=== PATIENT | male | born 1955 | race Caucasian/White ===

== ENCOUNTER 2017-12-30 14:45 | Emergency (ER) | payer BC, OTHER ==
[2017-12-30] MEDS ORDERED: NA CHLORIDE 0.9% 500 ML ONE ×2 (15:36→18:12)
[2017-12-30] MEDS ORDERED: ONDANSETRON 4 MG/2 ML VIAL ONE (15:36)
[2017-12-30] MEDS ORDERED: FENTANYL CITR 100 MCG/2 ML ONE (15:36)
[2017-12-30 15:38] LABS: Basophils % 0.2 % (0-1.3); Eosinophils % 0.1 % (0-4.4); Hematocrit 39.5 % (39.6-49.0); Lymphocytes % 6.7 % (15.3-44.8); MCH 29.4 pg (27.0-35.0); Monocytes % 6.4 % (3.3-12.3); RBC Red Blood Cell Count 4.49 M/uL (4.33-5.43)
[2017-12-30 15:58] LABS: Bilirubin Direct 0.2 mg/dL (0-0.2); Bilirubin Total 0.8 mg/dL (0.2-1.0); Protein, Total 7.1 g/dL (6.4-8.2)
[2017-12-30] MEDS ORDERED: NA CHLORIDE 0.9% 1,000 ML ONE (16:56)
--- NOTE | 2017-12-30 17:35 | RAD REPORT ---
EXAM DESCRIPTION: CTAbdomen Pelvis W Contrast - 12/30/2017 5:16 pm CLINICAL HISTORY: Abdominal pain. ABD PAIN COMPARISON: No comparisons TECHNIQUE: Biphasic CT imaging of the abdomen and pelvis was performed with 100 ml non-ionic IV cont rast. All CT scans are performed using dose optimization technique as appropriate and may include automated exposure control or mA/KV adjustment according to patient size. FINDINGS: The lower lung fernandez are emphysematous.Trace right pleural fluid. The liver demonstrates no focal mass or biliary dilatation. Cholelithiasis. The spleen, pancreas adre nal glands are normal. The left kidney has a normal appearance. A very large subcapsular hematoma is noted involving the right kidney measuring 12 x 6 cm. Marked def ormity of the right renal parenchyma is seen with evidence of a laceration present posteriorly. Activ e extravasation of contrast is seen within the hematoma compatible with active bleeding. A Page kidne y is likely. Moderate perinephric hematoma is seen with hematoma extending into the retroperitoneal s pace the right and extending across the midline. Fracture is seen involving the right posterior eleventh rib. Moderate fat containing inguinal hernia containing small bowel loop without obstruction. Prominent si gmoid diverticulosis without diverticulitis. IMPRESSION: Very large subcapsular hematoma involving the right kidney with evidence of active bleed ing. The right kidney is significantly deformed by the hematoma with evidence of posterior inferior l aceration. A Page kidney is possible. Moderate associated retroperitoneal hematoma is also present. Findings were discussed with HALLIE Peter in the emergency room 5:30 p.m. 12/30/2017 by telephone.
--- NOTE | 2017-12-30 17:57 | ER ---
Nurse's Notes [facility] Name: Chino Samuels Age: 62 yrs Sex: Male : 1955 Arrival Date: 12/30/2017 Time: 14:52 Bed 30 Private MD: Diagnosis: Laceration of right kidney, unspecified degree-Traumatic from fall with active bleeding Presentation: 12/30 15:07 Presenting complaint: Patient states: Reports slipping and falling, hitting right flank aj on pipes. Seen by health work and rc'd chest x-ray. Referred to ER for CT. Patient reports nausea as well. Transition of care: patient was not received from another setting of care. Onset of symptoms was December 30, 2017. Risk Assessment: Do you want to hurt yourself or someone else? Patient reports no desire to harm self or others. Initial Sepsis Screen: Does the patient meet any 2 criteria? No. Patient's initial sepsis screen is negative. Does the patient have a suspected source of infection? No. Patient's initial sepsis screen is negative. Care prior to arrival: None. 15:07 Method Of Arrival: Ambulatory 15:07 Acuity: RIAZ 3 aj 18:36 Acuity: RIAZ 2 ss Triage Assessment: 15:09 General: Appears in no apparent distress. comfortable, Behavior is calm, cooperative, aj appropriate for age. Pain: Complains of pain in right eighth rib, right ninth rib, right tenth rib, anterior aspect of right lateral abdomen and posterior aspect of right lateral abdomen. Neuro: Level of Consciousness is awake, alert, obeys commands, Oriented to person, place, time, situation, Appropriate for age. Respiratory: Airway is patent Respiratory effort is even, unlabored, Respiratory pattern is regular, symmetrical. GI: Abdomen is flat, non-distended. Derm: Skin is intact, is healthy with good turgor, Skin is pink, warm \T\ dry. normal. Historical: - Allergies: 15:09 No Known Allergies; aj - Home Meds: 15:09 Wellbutrin Oral [Active]; Hydrochlorothiazide Oral [Active]; Adderall XR Oral [Active]; aj - PMHx: 15:09 ADD/ADHD; Hypertension; Anxiety; aj - PSHx: 15:09 Appendectomy; Hernia repair; aj - Immunization history:: Adult Immunizations up to date. - Social history:: Smoking status: Patient/guardian denies using tobacco. - Ebola Screening: : Patient negative for fever greater than or equal to 101.5 degrees Fahrenheit, and additional compatible Ebola Virus Disease symptoms Patient denies exposure to infectious person Patient denies travel to an Ebola-affected area in the 21 days before illness onset No symptoms or risks identified at this time. Screenin:16 Abuse screen: Denies threats or abuse. Denies injuries from another. Nutritional mg2 screening: No deficits noted. Tuberculosis screening: No symptoms or risk factors identified. Fall Risk Fall in past 12 months (25 points). Assessment: 15:14 General: Appears uncomfortable, Behavior is calm, cooperative. Pain: Complains of pain mg2 in right flank Pain does not radiate. Pain currently is 10 out of 10 on a pain scale. Quality of pain is described as aching, Pain began suddenly, few hours ago at work. Neuro: Level of Consciousness is awake, alert, obeys commands, Oriented to person, place, time, situation. Cardiovascular: Capillary refill < 3 seconds Patient's skin is warm and dry. Respiratory: Airway is patent Respiratory effort is even, unlabored, Respiratory pattern is regular, symmetrical. GI: Abd is soft X 4 quads Reports Pain is 10 out of 10 on a pain scale. : No signs and/or symptoms were reported regarding the genitourinary system. EENT: No signs and/or symptoms were reported regarding the EENT system. Derm: Skin is intact, Skin is pink, warm \T\ dry. normal. Musculoskeletal: Circulation, motion, and sensation intact. Injury Description: no bruising or discoloration noted. 15:40 GI: Pt is actively vomiting Bowel sounds present X 4 quads. mg2 16:45 Reassessment: patient vomited 2x in ed. mg2 18:07 Reassessment: patient is for transfer and blood transfusion prior to transfer. informed mg2 consent signed by the daughter. 18:25 Reassessment: Patient appears in no apparent distress at this time. Patient and/or mg2 family updated on plan of care and expected duration. Pain level reassessed. Patient is alert, oriented x 3, equal unlabored respirations, skin warm/dry/pink. blood transfusion started. 18:51 Reassessment: lifeflight here, report given to GARY Fergusoncharge account clerk nurse at [facility]. Vital Signs: 15:09 BP 106 / 70; Pulse 52; Resp 20; Temp 98.2; Pulse Ox 98% on R/A; Weight 86.18 kg; Height aj 5 ft. 8 in. (172.72 cm); 15:45 BP 125 / 67; Pulse 50; Resp 18; Pulse Ox 100% 0 lpm ; Pain 9/10; mg2 16:43 BP 106 / 77; Pulse 49; Resp 18; Pulse Ox 96% ; Pain 8/10; mg2 17:32 BP 126 / 68; Pulse 57; Resp 18; Pulse Ox 100% ; Pain 5/10; mg2 18:20 BP 120 / 68; Pulse 60; Resp 18; Temp 98; Pulse Ox 100% on R/A; Pain 2/10; mg2 18:20 BP 126 / 67; Pulse 65; Resp 18; Temp 97.9; Pulse Ox 100% ; Pain 4/10; mg2 15:09 Body Mass Index 28.89 (86.18 kg, 172.72 cm) ED Course: 14:52 Patient arrived in ED. mr 15:08 Triage completed. aj 15:09 Daryl Yee PA is PHCP. cp 15:09 Arm band placed on left wrist. Patient placed in an exam room. aj 15:10 Lee Mallory MD is Attending Physician. cp 15:10 Jerzy Pantoja, GARY is Primary Nurse. mg2 15:40 Inserted saline lock: 20 gauge in left antecubital area, using aseptic technique. Blood mg2 collected. 15:41 Patient has correct armband on for positive identification. Placed in gown. Call light mg2 in reach. Side rails up X2. Door closed. Warm blanket given. Head of bed lowered. 17:07 Inserted saline lock: 20 gauge in right hand, using aseptic technique. Blood collected. mg2 17:16 CT Abd/Pelvis - W/Contrast: slip and fell into pipe RLQ In Process Unspecified. EDMS 17:18 CT completed. Patient tolerated procedure well. Patient moved back from CT. nj 18:10 EKG done, by nursing techn. reviewed by Daryl STERLING. sm3 18:21 X-ray completed. Portable x-ray completed in exam room. Patient tolerated procedure ml well. 18:22 XRAY Chest (1 view) In Process Unspecified. EDMS 18:58 No provider procedures requiring assistance completed. Patient transferred, IV remains mg2 in place. Administered Medications: 15:39 Drug: NS 0.9% 500 ml Route: IV; Rate: bolus; Site: left antecubital; mg2 16:40 Follow up: Response: No adverse reaction; IV Status: Completed infusion mg2 15:39 Drug: fentaNYL (PF) 25 mcg Route: IVP; Site: left antecubital; mg2 16:40 Follow up: Response: No adverse reaction; Pain is unchanged, physician notified mg2 15:39 Drug: Zofran 4 mg Route: IVP; Site: left antecubital; mg2 16:39 Follow up: Response: No adverse reaction; Nausea unchanged; Vomiting unchanged mg2 16:39 Drug: fentaNYL (PF) 25 mcg Route: IVP; Site: left antecubital; mg2 16:53 CANCELLED (Physician Discretion): NS 0.9% 500 ml IV at bolus once cp 17:07 Drug: Phenergan 25 mg Route: IVP; Site: right hand; mg2 17:07 Drug: NS 0.9% 1000 ml Route: IV; Rate: 1 bolus; Site: right hand; mg2 18:36 Drug: Benadryl 12.5 mg Route: IVP; Site: right hand; mg2 18:50 Follow up: Response: No adverse reaction mg2 18:42 Drug: ceFAZolin 1 grams Volume: 50 ml; Route: IVPB; Infused Over: 30 mins; Site: left mg2 antecubital; 18:45 Follow up: Response: No adverse reaction; IV Status: Completed infusion mg2 Outcome: 17:56 ER care complete, transfer ordered by MD. cp 18:59 Transferred by helicopter to [facility], Transfer form completed. mg2 18:59 Condition: stable 18:59 Instructed on the need for transfer, Demonstrated understanding of instructions. 19:10 Patient left the ED. mg2 Signatures: Dispatcher [employer] EDMS Mercedes Wilhelm RN RN aj Rivera, Maria mr Lopez, Sophia Wolfe RN RN ss Page, Corey, PA PA cp Jordan, Nathan nj Gardose, Michele, RN RN mg2 Anuradha Solano 3
[2017-12-30] MEDS ORDERED: DIPHENHYDRAMINE 50 MG/ML VIAL ONE (17:58)
--- NOTE | 2017-12-30 17:58 | EDPHYS ---
Physician Documentation [facility] Name: Chino Samuels Age: 62 yrs Sex: Male : 1955 Arrival Date: 12/30/2017 Time: 14:52 Bed 30 Private MD: ED Physician Lee Mallory HPI: 12/30 15:22 This 62 yrs old Male presents to ER via Ambulatory with complaints of cp Abdominal Pain. 15:22 The patient presents with abdominal pain right lower quadrant, blunt injury to the cp right lower quadrant. Onset: The symptoms/episode began/occurred this morning. The symptoms do not radiate. 15:22 Associated signs and symptoms: Pertinent negatives: chest pain, constipation, diarrhea, cp dysuria, fever, vomiting. The symptoms are described as constant. Modifying factors: the symptoms are aggravated by movement, pressure. 15:22 Patient reports he slipped and fell landing on right side of abdomen striking pipe in cp ground. Did not strike head or lose consciousness. Historical: - Allergies: 15:09 No Known Allergies; aj - Home Meds: 15:09 Wellbutrin Oral [Active]; Hydrochlorothiazide Oral [Active]; Adderall XR Oral [Active]; aj - PMHx: 15:09 ADD/ADHD; Hypertension; Anxiety; aj - PSHx: 15:09 Appendectomy; Hernia repair; aj - Immunization history:: Adult Immunizations up to date. - Social history:: Smoking status: Patient/guardian denies using tobacco. - Ebola Screening: : Patient negative for fever greater than or equal to 101.5 degrees Fahrenheit, and additional compatible Ebola Virus Disease symptoms Patient denies exposure to infectious person Patient denies travel to an Ebola-affected area in the 21 days before illness onset No symptoms or risks identified at this time. ROS: 15:30 Constitutional: Negative for body aches, chills, fever, poor PO intake. cp 15:30 Eyes: Negative for injury, pain, redness, and discharge. cp Exam: 15:35 Constitutional: The patient appears in no acute distress, alert, awake, cp non-diaphoretic, well developed, well nourished, uncomfortable. 15:35 Head/Face: Normocephalic, atraumatic. Eyes: Pupils equal round and reactive to light, cp extra-ocular motions intact. Lids and lashes normal. Conjunctiva and sclera are non-icteric and not injected. Cornea within normal limits. Periorbital areas with no swelling, redness, or edema. ENT: Nares patent. No nasal discharge, no septal abnormalities noted. Tympanic membranes are normal and external auditory canals are clear. Oropharynx with no redness, swelling, or masses, exudates, or evidence of obstruction, uvula midline. Mucous membranes moist. Neck: Trachea midline, no thyromegaly or masses palpated, and no cervical lymphadenopathy. Supple, full range of motion without nuchal rigidity, or vertebral point tenderness. No Meningismus. Chest/axilla: Normal chest wall appearance and motion. Nontender with no deformity. No lesions are appreciated. 15:35 Cardiovascular: Rate: bradycardic, Rhythm: regular, Edema: is not appreciated, JVD: is not appreciated. 15:35 Respiratory: the patient does not display signs of respiratory distress, Respirations: normal, no use of accessory muscles, no retractions, no splinting, no tachypnea, labored breathing, is not present, Breath sounds: are clear throughout, no decreased breath sounds, no stridor, no wheezing. 15:35 Abdomen/GI: Inspection: bruising, right lower lateral abdomen, Bowel sounds: active, all quadrants, Palpation: abdomen is soft and non-tender, in all quadrants, severe abdominal tenderness, in the right lower quadrant, rebound tenderness, is not appreciated, voluntary guarding, is elicited in the right lower quadrant. 15:35 Back: pain, is absent, ROM is normal. 15:35 Skin: cellulitis, is not appreciated, no rash present. 15:35 Neuro: Orientation: to person, place \T\ time. Mentation: is normal, Cerebellar function: is grossly normal, Motor: moves all fours, strength is normal, Sensation: no obvious gross deficits. 18:10 ECG was reviewed by the Attending Physician. cp Vital Signs: 15:09 BP 106 / 70; Pulse 52; Resp 20; Temp 98.2; Pulse Ox 98% on R/A; Weight 86.18 kg; Height aj 5 ft. 8 in. (172.72 cm); 15:45 BP 125 / 67; Pulse 50; Resp 18; Pulse Ox 100% 0 lpm ; Pain 9/10; mg2 16:43 BP 106 / 77; Pulse 49; Resp 18; Pulse Ox 96% ; Pain 8/10; mg2 17:32 BP 126 / 68; Pulse 57; Resp 18; Pulse Ox 100% ; Pain 5/10; mg2 18:20 BP 120 / 68; Pulse 60; Resp 18; Temp 98; Pulse Ox 100% on R/A; Pain 2/10; mg2 18:20 BP 126 / 67; Pulse 65; Resp 18; Temp 97.9; Pulse Ox 100% ; Pain 4/10; mg2 15:09 Body Mass Index 28.89 (86.18 kg, 172.72 cm) aj MDM: 15:13 Patient medically screened. 18:05 ED course: VSS. Consult with trauma services \[id number], DR Blank, will accept patient to ED for reevaluation. 18:29 Data reviewed: vital signs, nurses notes, lab test result(s), EKG, radiologic studies, CT scan, plain films. 12/30 15:19 Order name: Amylase, Serum; Complete Time: 16:21 12/30 15:19 Order name: Basic Metabolic Panel; Complete Time: 16:21 12/30 16:21 Interpretation: Normal except: GLUC 149; BUN 20; GFR 56. 12/30 15:19 Order name: CBC with Diff; Complete Time: 16:21 12/30 17:41 Interpretation: Normal except: WBC 15.0; HGB 13.2; HCT 39.5; CASA% 86.6; LYM% 6.7; NEUT cp A 13.0. 12/30 15:19 Order name: Creatinine for Radiology; Complete Time: 16:21 12/30 15:19 Order name: Hepatic Function; Complete Time: 16:21 12/30 15:19 Order name: Lipase; Complete Time: 16:21 12/30 15:19 Order name: CT Abd/Pelvis - W/Contrast: slip and fell into pipe RLQ; Complete Time: 17:40 12/30 16:54 Order name: Type And Screen 12/30 17:51 Order name: Packed RBC Leukored -1 [facility] [place] 12/30 17:54 Order name: ABO/RH no charge; Complete Time: 18:09 [facility] [place] 12/30 18:03 Order name: XRAY Chest (1 view); Complete Time: 18:42 07/10 15:19 Order name: IV Saline Lock; Complete Time: 15:40 cp 12/30 15:19 Order name: Labs collected and sent; Complete Time: 15:40 cp 10 15:19 Order name: Urine Dipstick-Ancillary (obtain specimen); Complete Time: 15:40 cp 10 16:53 Order name: IV; Complete Time: 17:50 cp 12/30 17:27 Order name: EKG; Complete Time: 17:28 cp 12/30 17:27 Order name: EKG - Nurse/Tech; Complete Time: 18:08 cp EC:10 Rate is 62 beats/min. Rhythm is regular. KS interval is normal. QRS interval is normal. cp QT interval is normal. No ST changes noted. Interpreted by me. Reviewed by me. Administered Medications: 15:39 Drug: NS 0.9% 500 ml Route: IV; Rate: bolus; Site: left antecubital; mg2 16:40 Follow up: Response: No adverse reaction; IV Status: Completed infusion mg2 15:39 Drug: fentaNYL (PF) 25 mcg Route: IVP; Site: left antecubital; mg2 16:40 Follow up: Response: No adverse reaction; Pain is unchanged, physician notified mg2 15:39 Drug: Zofran 4 mg Route: IVP; Site: left antecubital; mg2 16:39 Follow up: Response: No adverse reaction; Nausea unchanged; Vomiting unchanged mg2 16:39 Drug: fentaNYL (PF) 25 mcg Route: IVP; Site: left antecubital; mg2 16:53 CANCELLED (Physician Discretion): NS 0.9% 500 ml IV at bolus once cp 17:07 Drug: Phenergan 25 mg Route: IVP; Site: right hand; mg2 17:07 Drug: NS 0.9% 1000 ml Route: IV; Rate: 1 bolus; Site: right hand; mg2 18:36 Drug: Benadryl 12.5 mg Route: IVP; Site: right hand; mg2 18:50 Follow up: Response: No adverse reaction mg2 18:42 Drug: ceFAZolin 1 grams Volume: 50 ml; Route: IVPB; Infused Over: 30 mins; Site: left mg2 antecubital; 18:45 Follow up: Response: No adverse reaction; IV Status: Completed infusion mg2 Disposition: 18:05 Co-signature as Attending Physician, Lee Mallory MD PA/REGISTERED MEDICAL ASSISTANT's history reviewed, patient rn interviewed, and examined. HPI: 62 year old male s/p fall, + right flank pain My personal exam of patient reveals: + RUQ tenderness and ecchymosis with guarding to right flank, + inferior right rib cage tenderness, no crepitus I agree with assessment and care plan and confirm the diagnosis (es) above. Have initiated transfer to [facility] for renal laceration, have not had call back, attempting again.. Disposition: 12/30/17 17:56 Transfer ordered to [facility]. Diagnosis is Laceration of right kidney, unspecified degree - Traumatic from fall with active bleeding. - Reason for transfer: Higher level of care. - Accepting physician is Abhay. - Condition is Stable. - Problem is new. - Symptoms have improved. Signatures: Dispatcher [employer] EDMercedes Cintron RN RN Lee Lobo MD MD rn Page, Corey, PA PA cp Gardose, Michele RN RN mg2 Corrections: (The following items were deleted from the chart) 16:53 16:52 NS 0.9% 500 ml IV at bolus once ordered. cp cp 17:41 16:54 Normal except: WBC 15.0; HGB 13.2; HCT 39.5. cp cp 18:14 17:56 12/30/2017 17:56 Transfer ordered to [facility]. cp Diagnosis is Laceration of right kidney, unspecified degree - Traumatic from fall with active bleeding. Reason for transfer: Higher level of care. Accepting physician is doctor. Condition is Stable. Problem is new. Symptoms have improved. cp 19:10 18:14 12/30/2017 17:56 Transfer ordered to [facility]. mg2 Diagnosis is Laceration of right kidney, unspecified degree - Traumatic from fall with active bleeding. Reason for transfer: Higher level of care. Accepting physician is Abhay. Condition is Stable. Problem is new. Symptoms have improved. cp
--- NOTE | 2017-12-30 18:41 | RAD REPORT ---
EXAM DESCRIPTION: Haleigh Single View12/30/2017 6:23 pm CLINICAL HISTORY: Abdominal pain COMPARISON: November 2016 FINDINGS: The lungs appear clear of acute infiltrate. The heart is normal size IMPRESSION: No acute abnormalities displayed
[2017-12-30] MEDS ORDERED: CEFAZOLIN/SWI 1gm 1 GM/10 ML SYR ONE (18:43)
--- NOTE | 2017-12-30 21:31 | EKG ---
Test Date: 2017-12-30 Test Time: 18:03:07 Saw Maker: SANDRA MEASUREMENT RESULTS: Intervals: Rate: 62 OK: 160 QRSD: 94 QT: 436 QTc: 442 [place]: P: 53 OK: 160 QRS: 8 T: 29 INTERPRETIVE STATEMENTS: Normal sinus rhythm Normal ECG No previous ECG available for comparison Electronically Signed On 12-30-17 21:30:53 CDT by Benoit Dobson
== END 2017-12-30 19:10 | disposition short-term general hospital (02) ==
LOC: ER 14:45
DX: S37.031A Laceration of right kidney, unspecified degree, initial encounter (principal); W01.198A Fall on same level from slipping, tripping and stumbling with subsequent striking against other object, initial encounter; Y93.89 Activity, other specified; Y92.9 Unspecified place or not applicable; I10 Essential (primary) hypertension; F41.9 Anxiety disorder, unspecified; F90.9 Attention-deficit hyperactivity disorder, unspecified type
CPT/HCPCS: 36415; 71045; 74177; 80048; 80076; 82150; 83690; 85025; 86850; 86900; 86901; 93005; 99285; J0690; J2405; J3010; J7030; P9016; Q9967

== ENCOUNTER 2018-01-10 16:10 | Emergency (ER) | payer BC ==
[2018-01-10 17:09] LABS: Urine Blood NEGATIVE (NEG); Urine Glucose NEGATIVE (NEG); Urine Protein NEGATIVE (NEG)
[2018-01-10 17:13] LABS: Absolute Lymphocytes (CBC) 1.5 K/uL (0.7-4.9); Absolute Neutrophil 6.9 K/uL (1.8-8.0); Basophils % 1.1 % (0-1.3); Eosinophils % 2.6 % (0-4.4); Hematocrit 27.8 % (39.6-49.0); Lymphocytes % 15.7 % (15.3-44.8); MCH 31.2 pg (27.0-35.0); MCV 89.7 fL (80-100); MPV 6.7 fL (7.6-11.3); RBC Red Blood Cell Count 3.09 M/uL (4.33-5.43)
[2018-01-10 17:31] LABS: ALT/SGPT 56 U/L (12-78); AST/SGOT 47 U/L (15-37); Albumin 3.2 g/dL (3.4-5.0); Alkaline Phosphatase 169 U/L (45-117); BUN Blood Urea Nitrogen 14 mg/dL (7-18); Bicarbonate 27 mmol/L (21-32); Bilirubin Direct 0.3 mg/dL (0-0.2); Bilirubin Total 1.1 mg/dL (0.2-1.0); Glucose Level 89 mg/dL (74-106); Potassium 4.1 mmol/L (3.5-5.1); Protein, Total 7.6 g/dL (6.4-8.2); Sodium Level 135 mmol/L (136-145)
[2018-01-10 17:36] LABS: Urine RBC <5 /HPF (NONE SEEN)
[2018-01-10 17:37] LABS: Urine Bacteria NONE SEEN /HPF (NONE SEEN); Urine Culture Reflex Order NOT NEEDED
--- NOTE | 2018-01-10 19:42 | RAD REPORT ---
EXAM DESCRIPTION: CT - Abdomen Pelvis W Contrast - 01/10/2018 5:54 pm CLINICAL HISTORY: Abdominal pain/right renal laceration COMPARISON: December 30, 2017 TECHNIQUE: Computed axial tomography of the abdomen pelvis was obtained. 100 cc Isovue-300 was admin istered intravenously. Oral contrast was not requested which limits evaluation of bowel. All CT scans are performed using dose optimization technique as appropriate and may include automated exposure control or mA/KV adjustment according to patient size. FINDINGS: A mildly displaced fracture involves the right eleventh posterior rib. An 11 x 11 centimeter right renal subscapular hematoma is overall without significant change from the prior examination. The additional retroperitoneal blood is diminished in size. The laceration involv ing the lower pole of the right kidney is without obvious change. Hydronephrosis is not present. The left kidney appears unremarkable. The spleen, liver, pancreas and adrenals demonstrate no significant abnormality. Cholelithiasis is present without evidence cholecystitis. A right inguinal hernia contains nondilated small bowel and a small amount of fluid. Small right pleural effusion with right lower lobe atelectasis is seen. A small left inguinal hernia contains fat IMPRESSION: 11 centimeter subacute right renal subcapsular hematoma is without significant change in size from the prior examination. The additional retroperitoneal blood has diminished.
--- NOTE | 2018-01-10 19:42 | RAD REPORT ---
EXAM DESCRIPTION: Haleigh Gomez (2 Views)01/10/2018 5:24 pm CLINICAL HISTORY: Cough COMPARISON: December 30 2017 FINDINGS: A small right pleural effusion is present. The lungs appear clear of acute infiltrate. The heart is normal size IMPRESSION: Small right pleural effusion
--- NOTE | 2018-01-10 20:13 | ER ---
Nurse's Notes [facility] Name: Chino Samuels Age: 62 yrs Sex: Male : 1955 Arrival Date: 01/10/2018 Time: 16:14 Bed 27 Private MD: Diagnosis: Atelectasis Presentation: 01/10 16:15 Presenting complaint: Patient states: "I came here and they sent me to [place] [id number] for some broken ribs and a punctured kidney but I think I am still anemic because now I am pale and tired and I am also still running a fever up to 101.0 F". Pt reports he was d/c'd home from [facility] 01/06/18. Pt states "they gave me about 3 blood transfusions". Pt reports taking Tylenol at 0300 and reports he is taking Oxycodone for pain control. 16:15 Transition of care: patient was not received from another setting of care. Onset of [facility] symptoms was December 2017. Risk Assessment: Do you want to hurt yourself or someone else? Patient reports no desire to harm self or others. Initial Sepsis Screen: Does the patient meet any 2 criteria? No. Patient's initial sepsis screen is negative. Does the patient have a suspected source of infection? No. Patient's initial sepsis screen is negative. 16:15 Method Of Arrival: Ambulatory [facility] 16:15 Acuity: RIAZ 3 aa5 17:23 Care prior to arrival: None. mg2 Triage Assessment: 19:00 General: Behavior is calm, cooperative. mg2 Historical: - Allergies: 16:15 No Known Allergies; aa5 - Home Meds: 20:28 Adderall XR Oral [Active]; Hydrochlorothiazide Oral [Active]; Wellbutrin Oral [Active]; mg2 - PMHx: 16:26 ADD/ADHD; Anxiety; Hypertension; aa5 - PSHx: 16:26 Appendectomy; Hernia repair; aa5 - Immunization history:: Flu vaccine status is unknown. - Ebola Screening: : No symptoms or risks identified at this time. - Social history:: Smoking status: Patient/guardian denies using alcohol, street drugs, IV drugs. Screenin:11 Abuse screen: Denies threats or abuse. Denies injuries from another. Nutritional mg2 screening: No deficits noted. Tuberculosis screening: No symptoms or risk factors identified. Fall Risk IV access (20 points). Assessment: 17:11 General: Appears in no apparent distress. comfortable. Pain: Denies pain. Neuro: Level mg2 of Consciousness is awake, alert, obeys commands, Oriented to person, place, time, situation. Cardiovascular: Capillary refill < 3 seconds Patient's skin is warm and dry. Respiratory: Airway is patent Respiratory effort is even, unlabored, Respiratory pattern is regular, symmetrical. GI: No signs and/or symptoms were reported involving the gastrointestinal system. : No signs and/or symptoms were reported regarding the genitourinary system. EENT: No signs and/or symptoms were reported regarding the EENT system. Derm: Skin is intact, Skin is pink, warm \\T\\ dry. normal. Musculoskeletal: No signs and/or symptoms reported regarding the musculoskeletal system. 17:23 Reassessment: patient sent to CT scan. mg2 17:31 Reassessment: Patient appears in no apparent distress at this time. Patient and/or mg2 family updated on plan of care and expected duration. Pain level reassessed. Patient is alert, oriented x 3, equal unlabored respirations, skin warm/dry/pink. Vital Signs: 16:15 BP 155 / 76; Pulse 77; Resp 16 S; Temp 99.7(O); Pulse Ox 100% on R/A; Weight 86.18 kg aa5 (R); Height 5 ft. 8 in. (172.72 cm) (R); Pain 2/10; 17:31 BP 141 / 79; Pulse 70; Resp 18; Pain 0/10; mg2 18:31 BP 142 / 76; Pulse 68; Resp 18; Pulse Ox 100% on R/A; Pain 0/10; mg2 19:44 BP 132 / 70; Pulse 70; Resp 18; Pulse Ox 100% on R/A; Pain 0/10; mg2 16:15 Body Mass Index 28.89 (86.18 kg, 172.72 cm) aa5 ED Course: 16:14 Patient arrived in ED. aa5 16:14 Arm band placed on Patient placed in an exam room, on a stretcher. aa5 16:16 Jorge Santamaria NP is PHCP. pm1 16:16 Lee Mallory MD is Attending Physician. pm1 16:25 Triage completed. aa5 16:33 Jerzy Pantoja, RN is Primary Nurse. mg2 17:11 Inserted saline lock: 20 gauge in right antecubital area, using aseptic technique. mg2 Blood collected. 17:14 Patient has correct armband on for positive identification. Bed in low position. Side mg2 rails up X 1. Door closed. Warm blanket given. Head of bed. 17:23 Chest Pa And Lat (2 Views) XRAY In Process Unspecified. EDMS 17:54 CT completed. Patient tolerated procedure well. Patient moved back from CT. vr 17:54 CT Abd/Pelvis - W/Contrast: IV contrast only In Process Unspecified. EDMS 20:26 No provider procedures requiring assistance completed. IV discontinued, intact, mg2 bleeding controlled, No redness/swelling at site. Pressure dressing applied. Administered Medications: No medications were administered Outcome: 20:12 Discharge ordered by MD. pm1 20:26 Discharged to home ambulatory, with family. mg2 20:26 Condition: stable 20:26 Discharge instructions given to patient, family, Instructed on discharge instructions, follow up and referral plans. Demonstrated understanding of instructions, follow-up care. 20:28 Patient left the ED. mg2 Signatures: Dispatcher [employer] EDKS Leidy Cannon, GARY RN Xiomara Hoskins vr Jorge Santamaria, SIRI FILENET ARCHITECT pm1 Jerzy Pantoja, RN RN mg2
--- NOTE | 2018-01-10 20:14 | EDPHYS ---
Physician Documentation [facility] Name: Chino Samuels Age: 62 yrs Sex: Male : 1955 Arrival Date: 01/10/2018 Time: 16:14 Bed 27 Private MD: ED Physician Lee Mallory HPI: 01/10 17:00 This 62 yrs old Male presents to ER via Ambulatory with complaints of pm1 Weakness. 17:00 The patient presents to the emergency department with weakness of the entire body, pm1 generalized weakness. Onset: The symptoms/episode began/occurred today. Context: occurred at home. Associated signs and symptoms: Pertinent positives: fever, Pertinent negatives: headache, paresthesias, syncope, near-syncope, Chest pain, shortness of breath. Current symptoms: Currently, the patient is not experiencing any symptoms. Patient was seen here in the ER on 12/30 for right 11th rib fracture with puncture of right kidney. Patient transferred to [facility]. Transfused with 4 units blood total with injury. Patient treated intravascularly for right kideny injury. Subcapsular hematoma of right kidney was not drained. Patient reports that he was discharged to home with hemoglobin in the 8 range. He is complaining of generalized weakness and is concerned that he might be anemic. Patient also reports on and off fevers. Patient has not taken any antipyretics today. No cough, shortness of breath, or chest pain. Patient with mild right lower quadrant pain that is decreased from trauma . Historical: - Allergies: 16:15 No Known Allergies; aa5 - Home Meds: 20:28 Adderall XR Oral [Active]; Hydrochlorothiazide Oral [Active]; Wellbutrin Oral [Active]; mg2 - PMHx: 16:26 ADD/ADHD; Anxiety; Hypertension; aa5 - PSHx: 16:26 Appendectomy; Hernia repair; aa5 - Immunization history:: Flu vaccine status is unknown. - Ebola Screening: : No symptoms or risks identified at this time. - Social history:: Smoking status: Patient/guardian denies using alcohol, street drugs, IV drugs. ROS: 17:00 Constitutional: Negative for fever, chills, and weight loss, Eyes: Negative for injury, pm1 pain, redness, and discharge, ENT: Negative for injury, pain, and discharge, Neck: Negative for injury, pain, and swelling, Cardiovascular: Negative for chest pain, palpitations, and edema, Respiratory: Negative for shortness of breath, cough, wheezing, and pleuritic chest pain, Abdomen/GI: Negative for abdominal pain, nausea, vomiting, diarrhea, and constipation, Back: Negative for injury and pain, MS/Extremity: Negative for injury and deformity, Skin: Negative for injury, rash, and discoloration. 17:00 Neuro: Positive for weakness, Negative for dizziness, headache, syncope, near syncope. Exam: 17:00 Constitutional: This is a well developed, well nourished patient who is awake, alert, pm1 and in no acute distress. Head/Face: Normocephalic, atraumatic. Eyes: Pupils equal round and reactive to light, extra-ocular motions intact. Lids and lashes normal. Conjunctiva and sclera are non-icteric and not injected. Cornea within normal limits. Periorbital areas with no swelling, redness, or edema. ENT: Nares patent. No nasal discharge, no septal abnormalities noted. Tympanic membranes are normal and external auditory canals are clear. Oropharynx with no redness, swelling, or masses, exudates, or evidence of obstruction, uvula midline. Mucous membranes moist. Neck: Trachea midline, no thyromegaly or masses palpated, and no cervical lymphadenopathy. Supple, full range of motion without nuchal rigidity, or vertebral point tenderness. No Meningismus. Chest/axilla: Normal chest wall appearance and motion. Nontender with no deformity. No lesions are appreciated. Cardiovascular: Regular rate and rhythm with a normal S1 and S2. No gallops, murmurs, or rubs. Normal PMI, no JVD. No pulse deficits. Respiratory: Lungs have equal breath sounds bilaterally, clear to auscultation and percussion. No rales, rhonchi or wheezes noted. No increased work of breathing, no retractions or nasal flaring. 17:00 Back: No spinal tenderness. No costovertebral tenderness. Full range of motion. Skin: Warm, dry with normal turgor. Normal color with no rashes, no lesions, and no evidence of cellulitis. MS/ Extremity: Pulses equal, no cyanosis. Neurovascular intact. Full, normal range of motion. 17:00 Abdomen/GI: Inspection: abdomen appears normal, Bowel sounds: normal, Palpation: soft, mild abdominal tenderness, in the right lower quadrant, mass, is not appreciated, rebound tenderness, is not appreciated. 17:00 Neuro: Orientation: is normal, Mentation: is normal, Cranial nerves: CN II- XII are normal as tested, Cerebellar function: normal finger to nose testing, Motor: moves all fours, Gait: is steady, at a normal pace, without difficulty. Vital Signs: 16:15 BP 155 / 76; Pulse 77; Resp 16 S; Temp 99.7(O); Pulse Ox 100% on R/A; Weight 86.18 kg aa5 (R); Height 5 ft. 8 in. (172.72 cm) (R); Pain 2/10; 17:31 BP 141 / 79; Pulse 70; Resp 18; Pain 0/10; mg2 18:31 BP 142 / 76; Pulse 68; Resp 18; Pulse Ox 100% on R/A; Pain 0/10; mg2 19:44 BP 132 / 70; Pulse 70; Resp 18; Pulse Ox 100% on R/A; Pain 0/10; mg2 16:15 Body Mass Index 28.89 (86.18 kg, 172.72 cm) aa5 MDM: 16:17 Patient medically screened. pm1 20:00 ED course: Patient's vital signs stable and hemoglobin wnls. CT with decreased blood pm1 present in peritoneal space. Patient without any signs of active bleeding. Patient's fever likely related to atelectasis. Chest xray negative for pneumonia. Patient's renal function wnls and urine negative. Therefore discharged to home to follow up with trauma surgeon and PCP in 2 weeks as planned from discharge from [facility] . 20:12 Data reviewed: vital signs. Data interpreted: Pulse oximetry: on room air is 100 %. pm1 Interpretation: normal. Counseling: I had a detailed discussion with the patient and/or guardian regarding: the historical points, exam findings, and any diagnostic results supporting the discharge/admit diagnosis, lab results, radiology results, the need for outpatient follow up, to return to the emergency department if symptoms worsen or persist or if there are any questions or concerns that arise at home. 01/10 16:49 Order name: Urine Microscopic Only; Complete Time: 17:57 pm1 01/10 16:49 Order name: Basic Metabolic Panel; Complete Time: 17:57 pm1 01/10 16:49 Order name: CBC with Diff; Complete Time: 17:57 pm1 01/10 16:49 Order name: Hepatic Function; Complete Time: 17:57 pm1 01/10 16:49 Order name: Type And Screen; Complete Time: 18:20 pm1 01/10 17:04 Order name: Urine Dipstick--Ancillary (enter results); Complete Time: 17:15 bd 01/10 16:49 Order name: IV Saline Lock; Complete Time: 16:52 pm1 01/10 16:49 Order name: Labs collected and sent; Complete Time: 16:52 pm1 01/10 16:49 Order name: Urine Dipstick-Ancillary (obtain specimen); Complete Time: 17:04 pm1 01/10 16:49 Order name: Chest Pa And Lat (2 Views) XRAY; Complete Time: 19:47 pm1 01/10 16:59 Order name: CT Abd/Pelvis - W/Contrast: IV contrast only; Complete Time: 19:47 pm1 Administered Medications: No medications were administered Disposition: 01/10/18 20:12 Discharged to Home. Impression: Atelectasis. - Condition is Stable. - Discharge Instructions: Atelectasis, Adult. - Medication Reconciliation Form, Thank You Letter, Antibiotic Education, Prescription Opioid Use form. - Follow up: Emergency Department; When: As needed; Reason: Worsening of condition. Follow up: Private Physician; When: 2 - 3 days; Reason: Recheck today's complaints, Continuance of care, Re-evaluation by your physician. - Problem is new. - Symptoms have improved. Addendum: 01/13/2018 07:39 Co-signature as Attending Physician, Lee Mallory MD. r n Signatures: Dispatcher [employer] EDHI Lee Mallory MD MD rn Calderon, Audri RN RN aa5 Jorge Santamaria NP [employer] pm1 Jerzy Pantoja RN RN mg2 Corrections: (The following items were deleted from the chart) 01/10 20:15 20:12 01/10/2018 20:12 Discharged to Home. Impression: Weakness. Condition is Stable. pm1 Forms are Medication Reconciliation Form, Thank You Letter, Antibiotic Education, Prescription Opioid Use. Follow up: Emergency Department; When: As needed; Reason: Worsening of condition. Follow up: Private Physician; When: 2 - 3 days; Reason: Recheck today's complaints, Continuance of care, Re-evaluation by your physician. Problem is new. Symptoms have improved. pm1 20:16 20:15 01/10/2018 20:12 Discharged to Home. Impression: Weakness; Atelectasis. Condition pm1 is Stable. Forms are Medication Reconciliation Form, Thank You Letter, Antibiotic Education, Prescription Opioid Use. Follow up: Emergency Department; When: As needed; Reason: Worsening of condition. Follow up: Private Physician; When: 2 - 3 days; Reason: Recheck today's complaints, Continuance of care, Re-evaluation by your physician. Problem is new. Symptoms have improved. pm1 20:28 20:16 01/10/2018 20:12 Discharged to Home. Impression: Atelectasis. Condition is mg2 Stable. Discharge Instructions: Atelectasis, Adult. Forms are Medication Reconciliation Form, Thank You Letter, Antibiotic Education, Prescription Opioid Use. Follow up: Emergency Department; When: As needed; Reason: Worsening of condition. Follow up: Private Physician; When: 2 - 3 days; Reason: Recheck today's complaints, Continuance of care, Re-evaluation by your physician. Problem is new. Symptoms have improved. pm1
== END 2018-01-10 20:28 | disposition home or self-care (01) ==
LOC: ER 16:10
DX: J98.11 Atelectasis (principal); R50.9 Fever, unspecified; I10 Essential (primary) hypertension; F41.9 Anxiety disorder, unspecified; F32.9 Major depressive disorder, single episode, unspecified; F90.9 Attention-deficit hyperactivity disorder, unspecified type
CPT/HCPCS: 36415; 71046; 74177; 80048; 80076; 81003; 81015; 85025; 86850; 86900; 86901; 99284; Q9967